=== PATIENT | female | born 1965 | race Two or more races ===

== ENCOUNTER → 2020-01-20 | Outpatient (CLI) | payer OTHER | END | disposition home or self-care (01) | LOC: CFH 09:55 | PROVIDERS: ATTEND Internal Medicine Cardiovascular Disease | DX: R07.9 Chest pain, unspecified (principal); R94.31 Abnormal electrocardiogram [ECG] [EKG] | CPT/HCPCS: 93306 ==

== ENCOUNTER → 2020-02-22 | Outpatient (CLI) | payer OTHER | END | disposition home or self-care (01) | LOC: CFH 07:30 | PROVIDERS: ATTEND Internal Medicine Cardiovascular Disease | DX: R94.31 Abnormal electrocardiogram [ECG] [EKG] (principal); R07.9 Chest pain, unspecified | CPT/HCPCS: 78452; 93017; A9502 ==

== ENCOUNTER → 2021-03-28 | Outpatient (CLI) | payer OTHER | END | disposition home or self-care (01) | LOC: CFH 06:56 | PROVIDERS: ATTEND Family Medicine | DX: Z12.31 Encounter for screening mammogram for malignant neoplasm of breast (principal) | CPT/HCPCS: 77063; 77067 ==